=== PATIENT | male | born 1970 | race African-American/Black ===

== ENCOUNTER 2017-03-14 14:27 | Emergency (ER) | payer BC ==
[~2017-03-14] VITALS: Ht 185.4 cm; Wt 95.3 kg
[2017-03-14 14:29] VITALS: BP 141/84
== END 2017-03-14 15:58 | disposition home or self-care (01) ==
LOC: ER 14:33
DX: J06.9 Acute upper respiratory infection, unspecified (principal)
CPT/HCPCS: 71010-TC; A4606; Z7610

== ENCOUNTER 2017-04-07 08:27 | Emergency (ER) | payer BC ==
[~2017-04-07] VITALS: Ht 185.4 cm; Wt 95.3 kg
[2017-04-07 08:36] VITALS: BP 164/86
[2017-04-07] MEDS ORDERED: NAPROXEN 250 MG TABLET ONE (08:50)
[2017-04-07] MEDS ORDERED: NAPROXEN 250 MG TABLET PO ONE (09:00)
== END 2017-04-07 08:55 | disposition home or self-care (01) ==
LOC: ER 08:30
DX: M54.5 Low back pain (principal); X50.0XXA Overexertion from strenuous movement or load, initial encounter; Y93.89 Activity, other specified; Y92.89 Other specified places as the place of occurrence of the external cause; Y99.8 Other external cause status
CPT/HCPCS: 99283; A4606; Z7610

== ENCOUNTER 2017-10-25 09:38 | Emergency (ER) | payer BC, MEDICAID ==
[~2017-10-25] VITALS: Ht 185.4 cm; Wt 113.4 kg
[2017-10-25 09:44] VITALS: BP 136/87
== END 2017-10-25 10:00 | disposition home or self-care (01) ==
LOC: ER 09:42
DX: B97.89 Other viral agents as the cause of diseases classified elsewhere (principal); J02.8 Acute pharyngitis due to other specified organisms; Z98.890 Other specified postprocedural states
CPT/HCPCS: A4606; Z7610